=== PATIENT | male | born 1975 | race Hispanic/Latino ===

== ENCOUNTER 2018-10-25 12:09 | Observation (INO) | payer OTHER ==
[2018-10-25 12:53] LABS: #Basophils 0.1 thou/uL (0.0-0.2); #Eosinphils 0.1 thou/uL (0.0-0.7); #Lymphocytes 2.1 thou/uL (1.20-3.40); #Monocytes 0.5 thou/uL (0.11-0.59); #Neutrophils 7.5 thou/uL (1.40-6.50); %Basophils 0.7 % (0.0-1.0); %Eosinophils 0.9 % (0.0-10.0); %Lymphocytes 20.4 % (21.0-51.0); %Monocytes 5.3 % (0.0-10.0); %Neutrophils 72.8 % (42.0-75.0); Hemoglobin 15.6 g/dL (14.0-18.0); Mean Corpuscular HGB CONC 33.9 g/dL (32.0-36.0); Mean Corpuscular Hemoglobin 30.2 pg (27.0-31.0); Mean Corpuscular Volume 89.1 fL (78.0-98.0); Mean Platelet Volume 8.5 fL (7.4-10.4); Platelet Count 315 thou/uL (130-400); RBC Distribution Width 12.1 % (11.5-14.5); Red Blood Cell (RBC) Count 5.17 mill/uL (4.70-6.10); White Blood Cell (WBC) Count 10.4 thou/uL (4.8-10.8)
--- NOTE | 2018-10-25 13:07 | RAD ---
CHEST 1 VIEW: Date: 10/25/18 HISTORY: Chest pain. COMPARISON: None. FINDINGS: Lungs are clear. No pneumothorax or effusion. Cardiac silhouette and mediastinal contours within norm al limits. IMPRESSION: No acute intrathoracic abnormality. POS: CET
[2018-10-25 13:11] LABS: ALT (SGPT) 51 U/L (8-55); AST (SGOT) 29 U/L (5-34); Albumin 4.2 g/dL (3.5-5.0); Alkaline Phosphatase 97 U/L (40-150); Anion Gap 19 mmol/L (10-20); BUN (Urea Nitrogen) 16 mg/dL (8.9-20.6); Bilirubin, Total 0.3 mg/dL (0.2-1.2); CK (CPK) 143 U/L (30-200); Calc. Creatinine Clearance 0 mL/min (70-130); Calcium 9.7 mg/dL (7.8-10.44); Carbon Dioxide 19 mmol/L (22-29); Chloride 103 mmol/L (98-107); Estimated GFR-MDRD 74; Globulin 3.8 g/dL (2.4-3.5); Glucose 479 mg/dL (70-105); Potassium 4.5 mmol/L (3.5-5.1); Sodium 136 mmol/L (136-145)
[2018-10-25] MEDS ORDERED: Dextrose 5% in Water 1,000 ML IV PRN ×2 (14:52→21:25)
[2018-10-25] MEDS ORDERED: Ondansetron ODT 4 MG TAB PO PRN (14:52)
[2018-10-25] MEDS ORDERED: Acetaminophen 325 MG TAB PO PRN (14:52)
[2018-10-25] MEDS ORDERED: Dextrose 50% Abboject 50 ML SYRINGE SLOW IVP PRN (14:52)
[2018-10-25] MEDS ORDERED: Zolpidem Tartrate 5 MG TAB PO PRN (14:52)
[2018-10-25] MEDS ORDERED: Nitroglycerin 0.4 MG TAB (25 Tab Bottle) PO PRN (14:52)
--- NOTE | 2018-10-25 15:23 | HP ---
HISTORY OF PRESENT ILLNESS: [facility] call admission for [facility]. Referred to the [facility] Hospitalist Service by [facility]. The patient is from [place]. He has been here for a brief period of time. He came to the emergency room today because of pressure chest pain, anterior chest. No real shortness of breath. The pain radiated to his back. He had a sweat. No nausea. He has had a recent injury to his left shoulder and has pain in his left shoulder, which hurts if he moves his neck to the right just in a certain position. PAST MEDICAL HISTORY: Pertinent for diabetes mellitus type 2, hypertension, obstructive sleep apnea, he has a CPAP machine he uses at night. MEDICATIONS: 1. Metformin 1000 mg twice a day. 2. Losartan 100 mg once a day. ALLERGIES: NO KNOWN DRUG ALLERGIES. PAST SURGICAL HISTORY: None. FAMILY HISTORY: No coronary artery disease. Multiple members with type 2 diabetes and hypertension. SOCIAL HISTORY: He is . Full code status. He has had no tobacco in five years, but very occasional alcohol. REVIEW OF SYSTEMS: CONSTITUTIONAL: He gets occasional dizziness, occasional headache. No problems related to that currently. HEENT: Eyes, he needs glasses, but seldom wears them. No ear pain or drainage. No nasal bleeding. No trouble swallowing. CARDIAC: See present illness. No orthopnea or paroxysmal nocturnal dyspnea. RESPIRATION: No cough, wheezing, or asthma. GASTROINTESTINAL: No nausea, vomiting, diarrhea, or abdominal pain. GENITOURINARY: No hematuria or dysuria. NEUROLOGICAL: No history of stroke, focal weakness, or seizures. PSYCHIATRIC: No anxiety or depression. SKIN: No bruising, bleeding, or rash. HEME/LYMPH: No tender or swollen lymph nodes in the axilla, inguinal, or cervical area. PHYSICAL EXAMINATION: GENERAL: He is an alert, pleasant, cooperative gentleman VITAL SIGNS: Blood pressure 161/90, pulse 99, respirations 18, temperature 98.5, room air sat 97. HEAD, EYES, EARS, NOSE, AND THROAT: Pupils equal, round, reactive to light. Extraocular movements are intact. Sclerae white. Tympanic membranes clear. Nose is clear. Oral mucous membranes are wet. Dental hygiene is good. NECK: No adenopathy, jugular venous distention, or thyromegaly. CHEST: Clear to auscultation and percussion. HEART: Regular rate and rhythm. First and second heart sounds clear. There are no appreciated murmurs or gallops. ABDOMEN: Soft. Bowel sounds are normal. There is no hepatosplenomegaly. No mass. No rebound. EXTREMITIES: Reveal no cyanosis, clubbing, or edema. PULSES: Carotid, radial, femoral and dorsalis pedis pulses intact and symmetric. SKIN: Warm and dry without bruises or rash. HEME/LYMPH: No tender or swollen lymph nodes in the axilla, inguinal, or cervical area. No petechial hemorrhages in nailbeds. NEUROLOGICAL: Cranial nerves 2 through 12 are intact. Moves all extremities. Deep tendon reflexes symmetric. MUSCULOSKELETAL: He does have some tenderness on range of motion of his left shoulder, which he states he has injured recently. There is no dislocation or deformity noted. DIAGNOSTIC DATA: EKG, regular sinus rhythm. Q-wave in V2, otherwise normal. Reviewed by me. Chest x-ray, no CHF, infiltrate, or cardiomegaly. Reviewed by me. LABORATORY DATA: Metabolic profile normal except for blood sugar of 479, CO2 of 19. He has CBCs normal. PLAN: 1. Serial enzymes. 2. Aspirin. 3. Cardiac stress test. 4. Repeat basic metabolic profile in the morning. 5. Hold metformin. Job ID: [id number]
[2018-10-25 18:30] VITALS: BMI 37.0
[2018-10-25] MEDS ORDERED: HumaLOG 300 UNITS/3 ML VIAL SC PRN (21:25)
[2018-10-25] MEDS ORDERED: Dextrose 50% Abboject 50 ML SYRINGE IVP PRN (21:25)
[2018-10-26 06:03] LABS: Anion Gap 13 mmol/L (10-20); BUN (Urea Nitrogen) 14 mg/dL (8.9-20.6); Calc. Creatinine Clearance 197 mL/min (70-130); Carbon Dioxide 25 mmol/L (22-29); Chloride 105 mmol/L (98-107); Estimated GFR-MDRD Greater than 90; Glucose 244 mg/dL (70-105); Potassium 4.1 mmol/L (3.5-5.1); Sodium 139 mmol/L (136-145)
[2018-10-26] MEDS ORDERED: Aspirin 325 MG TAB PO SCH (09:00)
[2018-10-26] MEDS ORDERED: Losartan 25 MG TAB PO SCH (09:00)
[2018-10-26] MEDS: HumaLOG 300 UNITS/3 ML VIAL SC PRN ×2 (12:34→16:58)
--- NOTE | 2018-10-26 15:30 | PDOC.PN ---
- Subjective Encounter Start Date: 10/26/18 Encounter Start Time: 15:28 Subjective: no chest pain etc - Objective Resuscitation Status - Order Detail: 10/25/18 14:49 Resuscitation Status Routine Resuscitation Status: FULL: Full Resuscitation MAR Reviewed: Yes Vital Signs & Weight: Vital Signs (12 hours) Temp Pulse Resp BP Pulse Ox 10/26/18 11:53 98.1 F 88 16 155/92 H 96 10/26/18 08:00 98.3 F 75 16 165/95 H 96 10/26/18 03:44 98.0 F 65 20 120/65 97 Weight Weight 289 lb I&O: 10/25/18 10/26/18 10/27/18 06:59 06:59 06:59 Intake Total 320 240 Balance 320 240 Result Diagrams: 10/25/18 12:28 10/26/18 05:24 Additional Labs: Accuchecks 10/26/18 10/26/18 10/25/18 12:06 05:24 21:14 POC Glucose 281 H 217 H 221 H Phys Exam - Physical Examination Neck: no JVD Respiratory: clear to auscultation bilateral Cardiovascular: RRR, no significant murmur Gastrointestinal: soft, positive bowel sounds Musculoskeletal: no edema Dx/Plan (1) Chest pain Code(s): R07.9 - CHEST PAIN, UNSPECIFIED Status: Acute Qualifiers: Chest pain type: precordial pain Qualified Code(s): R07.2 - Precordial pain (2) DM type 2 (diabetes mellitus, type 2) Status: Chronic Qualifiers: Diabetes mellitus jail insulin use: without parts counterman use Diabetes mellitus complication status: without complication Qualified Code(s): E11.9 - Type 2 diabetes mellitus without complications (3) HTN (hypertension) Code(s): I10 - ESSENTIAL (PRIMARY) HYPERTENSION Status: Chronic Qualifiers: Hypertension type: essential hypertension Qualified Code(s): I10 - Essential (primary) hypertension (4) NATALIE (obstructive sleep apnea) Code(s): G47.33 - OBSTRUCTIVE SLEEP APNEA (ADULT) (PEDIATRIC) Status: Chronic - Plan some dilatation on stress test, have asked Dr Weldon to see in consult * .
[2018-10-26 15:47] VITALS: BP 157/87; TEMP 97.8
--- NOTE | 2018-10-26 16:01 | NM ---
MYOCARDIAL PERFUSION STUDY: DATE: 10/26/2018. HISTORY: Chest pain. RADIOPHARMACEUTICALS: 30 mCi Technetium 99m sestamibi, IV at stress, and 29.1 mCi Technetium 99m sestamibi, IV at rest. FINDINGS: This examination was performed as an exercise stress myocardial perfusion study following the routine Andrew protocol. The resting heart rate is 81 b.p.m. with a maximal heart rate of 153 b.p.m. This r epresents 87% of the maximal predicted effective heart rate. There is normal uptake and distribution of radiotracer seen throughout the left ventricular myocardiu m. No significant reversible defect is seen between the stress and resting acquisitions. Gated imag es show normal ventricular wall thickening. There is mild hypokinesis involving the septal wall and to a lesser extent inferior left ventricular wall. The calculated left ventricular ejection fraction is 64%. There is slight elevation of the transient ischemic dilatation ratio of 1.25 with upper nor mal being 1.22. IMPRESSION: 1. Normal myocardial perfusion study without evidence of a reversible defect seen to suggest ischemi a. 2. Elevation of the transient ischemic dilatation ratio which is 1.25. 3. Mild hypokinesis involving the septum and to a lesser extent inferior left ventricular wall. 4. Normal left ventricular ejection fraction of 64%. POS: [facility]
--- NOTE | 2018-10-26 18:58 | DIS ---
DATE OF ADMISSION: 10/25/2018 DATE OF DISCHARGE: 10/26/2018 PRIMARY CARE PROVIDER: None. DISPOSITION: Discharged to home. FINAL DIAGNOSES: 1. Noncardiac chest pain. 2. Diabetes mellitus type 2 without complications. 3. Hypertension. 4. Obstructive sleep apnea. DISCHARGE MEDICATIONS: 1. Losartan 100 mg a day. 2. Metformin 1000 mg twice a day. ALLERGIES: NO KNOWN DRUG ALLERGIES. DIET: Diabetic diet. PENDING AT TIME OF DISCHARGE: Nothing. CODE STATUS: Full. HOSPITAL COURSE: The patient is admitted with pressure chest pain, no associated symptoms. EKG was unrevealing. Serial troponins were normal. CBC, comprehensive metabolic profile normal. Stress test was done which was no reversible ischemia. Excellent ejection fraction. He is being discharged. He has been told he needs to find a PCP for followup. No consultations. Job ID: [id number]
== END 2018-10-26 19:25 | disposition home or self-care (01) ==
LOC: ERS 12:09 → ERHOLD 14:37 → 2SW 18:08
PROVIDERS: ADMIT Internal Medicine; ATTEND Internal Medicine
DX: R07.89 Other chest pain (principal); E11.9 Type 2 diabetes mellitus without complications; I10 Essential (primary) hypertension; G47.33 Obstructive sleep apnea (adult) (pediatric); Z99.89 Dependence on other enabling machines and devices; Z79.84 Long term (current) use of oral hypoglycemic drugs; Z79.899 Other long term (current) drug therapy; Z87.891 Personal history of nicotine dependence
CPT/HCPCS: 36415; 36416; 71045; 78452; 80048; 80053; 82550; 84484; 85025; 93005; 93017; 94660; 94760; A9500; G0378